=== PATIENT | female | born 1990 | race Caucasian/White ===

== ENCOUNTER 2018-03-28 06:56 | Emergency (ER) | payer OTHER ==
[2018-03-28] MEDS ORDERED: Ondansetron HCl/PF 4 MG/2 ML Vial ONE (07:17)
[2018-03-28 07:59] LABS: ALT (SGPT) 23 U/L (8-55); AST (SGOT) 19 U/L (5-34); Albumin 4.5 g/dL (3.5-5.0); Alkaline Phosphatase 108 U/L (40-150); Anion Gap 13 mmol/L (10-20); BUN (Urea Nitrogen) 11 mg/dL (7.0-18.7); Bilirubin, Total 0.3 mg/dL (0.2-1.2); Calc. Creatinine Clearance 0 mL/min (70-130); Calcium 9.4 mg/dL (7.8-10.44); Carbon Dioxide 23 mmol/L (22-29); Chloride 104 mmol/L (98-107); Estimated GFR-MDRD 77; Globulin 3.2 g/dL (2.4-3.5); Glucose 100 mg/dL (70-105); Lipase 20 U/L (8-78); Potassium 3.8 mmol/L (3.5-5.1); Protein, Total 7.7 g/dL (6.0-8.3); Sodium 136 mmol/L (136-145)
[2018-03-28 08:03] LABS: Hemoglobin 13.3 g/dL (12.0-16.0); Mean Corpuscular HGB CONC 35.9 g/dL (32.0-36.0); Mean Corpuscular Hemoglobin 32.2 pg (27.0-31.0); Mean Corpuscular Volume 89.6 fL (78.0-98.0); Mean Platelet Volume 7.6 fL (7.4-10.4); Platelet Count 247 thou/uL (130-400); RBC Distribution Width 11.3 % (11.5-14.5); Red Blood Cell (RBC) Count 4.13 mill/uL (4.20-5.40); White Blood Cell (WBC) Count 5.7 thou/uL (4.8-10.8)
[2018-03-28 08:04] LABS: Bilirubin Negative (Negative); Blood, Urine Negative (Negative); Clarity CLEAR (Clear); Glucose, Urine (Dipstick) Negative (Negative); Leukocyte Moderate (Negative); Nitrite Negative (Negative); Protein, Urine (Dipstick) Negative (Neg-Trace); Specific Gravity, Urine 1.017 (1.002-1.036); Urobilinogen 0.2 mg/dL (0.2-1.0)
[2018-03-28 08:05] LABS: Band 4 % (5-11); Eosinophils 1 % (0-10); Lymphocytes 33 % (21-51); MDiff Complete? YES; Monocytes 2 % (0-10); Neutrophil 60 % (42-75); RBC Morphology Normal
[2018-03-28 08:06] LABS: Bacteria/HPF None Seen HPF (None Seen); Hyaline Casts/LPF 0-3 HYALINE CAST LPF (0-3 Hyaline); Pathc Cast-AUWi Flag 0.29 (0-2.49); WBC/HPF 0-3 HPF (0-3)
[2018-03-28 08:15] LABS: Pregnancy Test - Urine (BHCG) Negative (Negative); Pregu Control Background? CLEAR/WHITE (CLR/WHITE); Pregu Control Bar Appear? YES (CONTROL BAR); Specific Gravity 1.017 (1.002-1.036)
[2018-03-28] MEDS ORDERED: ISOVUE-370 76%-LOCM 1 ML ONE (08:16)
[2018-03-28 08:23] LABS: RBC/HPF 0-3 HPF (0-3)
--- NOTE | 2018-03-28 08:57 | CT ---
CT ABDOMEN AND PELVIS WITH CONTRAST: HISTORY: Abdominal pain. COMPARISON: None. FINDINGS: The lung bases are clear. No pericardial effusion. No dilated loops of large or small bowel. The ap pendix is visualized and is normal. There is no free intraperitoneal gas or fluid. The liver and gallbladder are unremarkable. The pancreas is unremarkable. Hypodensity is present in the posterior cortex interpolar right kidney measuring fluid attenuation. No retroperitoneal adenopathy. IMPRESSION: No acute inflammatory process in the abdomen or pelvis. POS: [facility]
== END 2018-03-28 09:24 | disposition home or self-care (01) ==
LOC: ERS 06:56
DX: R10.9 Unspecified abdominal pain (principal); F41.9 Anxiety disorder, unspecified; F32.9 Major depressive disorder, single episode, unspecified; Z79.899 Other long term (current) drug therapy
CPT/HCPCS: 74177; 80053; 81003; 81015; 81025; 83690; 85025; 96361; 96374; 96375; J2270; J2405

== ENCOUNTER 2018-06-24 12:27 | Emergency (ER) | payer OTHER ==
[2018-06-24 12:59] LABS: #Eosinphils 0.1 thou/uL (0.0-0.7); #Lymphocytes 2.6 thou/uL (1.20-3.40); #Monocytes 0.5 thou/uL (0.11-0.59); #Neutrophils 3.7 thou/uL (1.40-6.50); %Basophils 0.6 % (0.0-1.0); %Eosinophils 1.1 % (0.0-10.0); %Monocytes 6.5 % (0.0-10.0); %Neutrophils 53.8 % (42.0-75.0); Hemoglobin 12.9 g/dL (12.0-16.0); Mean Corpuscular HGB CONC 33.7 g/dL (32.0-36.0); Mean Corpuscular Volume 88.8 fL (78.0-98.0); Mean Platelet Volume 7.7 fL (7.4-10.4); Platelet Count 259 thou/uL (130-400); RBC Distribution Width 11.3 % (11.5-14.5); Red Blood Cell (RBC) Count 4.31 mill/uL (4.20-5.40); White Blood Cell (WBC) Count 6.9 thou/uL (4.8-10.8)
[2018-06-24 13:20] LABS: ALT (SGPT) 21 U/L (8-55); AST (SGOT) 18 U/L (5-34); Albumin 4.6 g/dL (3.5-5.0); Alkaline Phosphatase 110 U/L (40-150); Anion Gap 12 mmol/L (10-20); BUN (Urea Nitrogen) 12 mg/dL (7.0-18.7); Bilirubin, Total 0.5 mg/dL (0.2-1.2); CK (CPK) 124 U/L (29-168); Calc. Creatinine Clearance 0 mL/min (70-130); Calcium 9.7 mg/dL (7.8-10.44); Carbon Dioxide 22 mmol/L (22-29); Chloride 105 mmol/L (98-107); Estimated GFR-MDRD 89; Globulin 3.2 g/dL (2.4-3.5); Glucose 81 mg/dL (70-105); Potassium 3.7 mmol/L (3.5-5.1); Protein, Total 7.8 g/dL (6.0-8.3); Sodium 135 mmol/L (136-145)
--- NOTE | 2018-06-24 14:07 | RAD ---
PORTABLE AP CHEST XRAY: DATE: 06/24/2018. HISTORY: Left-sided chest pain with radiation to left arm. COMPARISON: None available. FINDINGS: Heart and mediastinal structures are within normal limits. Lungs are clear. Osseous structures are intact. IMPRESSION: No acute process is identified. POS: [facility]
[2018-06-24 14:29] LABS: BHCG - Serum Negative (NEGATIVE); Pregs Control Background? CLEAR/WHITE (CLR/WHITE); Pregs Control Bar Appear? YES (CONTROL BAR)
[2018-06-24] MEDS ORDERED: Ketorolac Tromethamine 60 MG/2 ML VIAL ONE (14:36)
--- NOTE | 2018-06-26 15:29 | EKG ---
Test Reason : CP Blood Pressure : / mmHG Vent. Rate : 096 BPM Atrial Rate : 096 BPM P-R Int : 134 ms QRS Dur : 074 ms QT Int : 360 ms P-R-T Axes : 044 002 045 degrees QTc Int : 454 ms Normal sinus rhythm Minimal voltage criteria for LVH, may be normal variant No STEMI Borderline ECG Confirmed by ANNA VELASQUEZ, ALFRED ([id number]), sports editor KRYSTIAN BATES ([id number] on 06/26/2018 3:29:18 PM Referred By: Confirmed By:ALFRED CASTILLO MD
== END 2018-06-24 15:09 | disposition home or self-care (01) ==
LOC: ERS 12:27
DX: R07.9 Chest pain, unspecified (principal); F41.9 Anxiety disorder, unspecified; F32.9 Major depressive disorder, single episode, unspecified
CPT/HCPCS: 36415; 71045; 80053; 82550; 84484; 84703; 85025; 85379; 93005; 96372; J1885

== ENCOUNTER 2019-08-07 13:16 | Outpatient (CLI) | payer OTHER | END 2019-08-07 13:17 | disposition home or self-care (01) | LOC: ULT 13:16 | PROVIDERS: ATTEND Family Medicine | DX: R01.1 Cardiac murmur, unspecified (principal); I08.8 Other rheumatic multiple valve diseases | CPT/HCPCS: 93306 ==

== ENCOUNTER 2020-04-22 07:38 | Outpatient (CLI) | payer OTHER ==
--- NOTE | 2020-04-22 12:54 | HP ---
She is scheduled for surgery on 04/27/2020. HISTORY OF PRESENT ILLNESS: Ms. Soni is 29-year-old white female, G2, P2, who has been having extremely heavy menstrual bleeding over the past 2 years. She describes passing very large clots with heavy flow for 7 days and has progressively worsened. She is not desiring any further children and has tried oral contraceptives which have not improved her symptoms. She also uses ibuprofen 800 mg every 8 hours with minimal improvement in her cramping pain and flow. She is desiring definitive surgical therapy. PAST MEDICAL HISTORY: Negative. PAST SURGICAL HISTORY: Negative. OB HISTORY: Two spontaneous vaginal deliveries. FAMILY HISTORY: Noncontributory. CURRENT MEDICATIONS: 1. Oral contraceptive agents. 2. Motrin p.r.n. ALLERGIES: SHE HAS NO KNOWN DRUG ALLERGIES. PHYSICAL EXAMINATION: VITAL SIGNS: Her height is 4 feet 11 inches, weight 178, with a BMI of 36. Blood pressure 136/80, pulse 94, respirations 18, and O2 saturation 99% on room air. HEENT: Within normal limits. CHEST: Clear to auscultation. HEART: Regular rate and rhythm. S1, S2 heart sounds. No murmurs, rubs, or gallops. ABDOMEN: Soft, nontender, nondistended, with no palpable masses. PELVIC: Vulva and vagina had no lesions. Cervix has no lesions. Uterus is small, but it was tender on exam. Adnexa were nontender, with no masses. LABORATORY DATA: Transvaginal ultrasound was obtained showing the uterus measuring 9.21 x 6.31 x 5.56 cm with a thickened endometrial lining of 15 mm. Normal bilateral ovaries and tubes were noted. There was a presumed uterine polyp seen 2.95 x 0.92 cm on the uterine cavity. Pap smear and HPV testing were negative. ASSESSMENT: This is a 29-year-old white female, G2, P2, with menorrhagia and pelvic pain with probable endometrial polyp, desiring definitive surgical therapy. PLAN: Plan is to proceed with robotic total laparoscopic hysterectomy with bilateral salpingectomy. Risks and benefits of the procedure have been discussed in detail. She is set for surgery on 04/27. Job ID: [id number]
[2020-04-22 15:01] LABS: BHCG - Serum Negative (NEGATIVE); Pregs Control Background? CLEAR/WHITE (CLR/WHITE); Pregs Control Bar Appear? YES (CONTROL BAR)
[2020-04-22 15:05] LABS: Hemoglobin 12.6 g/dL (12.0-16.0); Mean Corpuscular Hemoglobin 31.7 pg (27.0-31.0); Mean Corpuscular Volume 90.4 fL (78.0-98.0); Mean Platelet Volume 8.9 fL (7.4-10.4); Platelet Count 238 thou/uL (130-400); RBC Distribution Width 11.3 % (11.5-14.5); Red Blood Cell (RBC) Count 3.99 mill/uL (4.20-5.40); White Blood Cell (WBC) Count 6.9 thou/uL (4.8-10.8)
[2020-04-23 12:26] LABS: SARS-CoV-2 MS2 Positive; SARS-CoV-2 N Gene Negative; SARS-CoV-2 S Gene Negative; SARS-CoV-2 by NAA Not Detected (NotDetected); SARS-CoV-2 orf1ab Negative
== END 2020-04-22 07:39 | disposition home or self-care (01) ==
LOC: LABBT 07:38
PROVIDERS: ATTEND Obstetrics & Gynecology
DX: Z01.812 Encounter for preprocedural laboratory examination (principal); N80.0 Endometriosis of uterus; N92.0 Excessive and frequent menstruation with regular cycle; N94.6 Dysmenorrhea, unspecified; Z20.828 Contact with and (suspected) exposure to other viral communicable diseases
CPT/HCPCS: 84703; 85027; 86850; 86900; 86901; 87635; U0003

== ENCOUNTER 2020-04-27 05:40 | Day surgery (SDC) | payer OTHER ==
[2020-04-22 15:08] VITALS: BMI 35.1
[2020-04-27] MEDS ORDERED: Gabapentin 300 MG CAP ONE (06:03)
[2020-04-27] MEDS ORDERED: Famotidine/PF 20 mg/2ml Vial ONE (06:03)
[2020-04-27] MEDS ORDERED: CeleCOXIB 100 MG CAP ONE (06:03)
[2020-04-27] MEDS ORDERED: Bupivacaine HCl 0.5%/Epinephrine 1:200,000/PF 30 ml Vial ONE (06:59)
[2020-04-27] MEDS ORDERED: Midazolam HCl 2 mg/2 ml Vial ONE (07:04)
[2020-04-27] MEDS ORDERED: Fentanyl 250 MCG/5 ML VIAL ONE (07:11)
[2020-04-27] MEDS ORDERED: Simethicone Chewable 80 MG TAB PO PRN (09:13)
[2020-04-27] MEDS ORDERED: Bisacodyl 10 MG SUPP PR PRN (09:13)
[2020-04-27] MEDS ORDERED: Morphine 4 MG/ML VIAL SLOW IVP PRN (09:13)
[2020-04-27] MEDS ORDERED: HYDROcodone/Acetaminophen 5/325 mg Tablet PO PRN ×2 (09:13)
[2020-04-27] MEDS ORDERED: Zolpidem Tartrate 5 MG TAB PO PRN (09:13)
[2020-04-27] MEDS ORDERED: diphenhydrAMINE 25 MG CAP PO PRN (09:13)
[2020-04-27] MEDS ORDERED: traMADol HCl 50 MG TAB PO PRN (09:13)
[2020-04-27] MEDS ORDERED: Promethazine HCl 25 MG/ML VIAL IM PRN ×2 (09:13→09:47)
[2020-04-27] MEDS ORDERED: Ondansetron PF 4 MG/2 ML Vial IVP PRN (09:13)
[2020-04-27] MEDS ORDERED: Fentanyl 100 MCG/2 ML VIAL ONE ×2 (09:36→10:00)
[2020-04-27] MEDS ORDERED: PROPOFOL 200 MG/20 ML VIAL ONE (09:45)
[2020-04-27] MEDS ORDERED: Glycopyrrolate 0.2 MG/ML 5 ML SYRINGE ONE (09:45)
[2020-04-27] MEDS ORDERED: Ondansetron PF 4 MG/2 ML Vial ONE (09:45)
[2020-04-27] MEDS ORDERED: Promethazine HCl 25 MG/ML VIAL SLOW IVP PRN (09:47)
[2020-04-27] MEDS ORDERED: Ondansetron HCl/PF 4 MG/2 ML Vial IVP PRN (09:47)
--- NOTE | 2020-04-27 10:46 | OP ---
DATE OF PROCEDURE: 04/27/2020 PREOPERATIVE DIAGNOSES: 1. A 29-year-old white female, G2, P2, with menometrorrhagia. 2. Failed medical management. 3. Probable endometrial polyp. 4. Desires definitive surgical therapy. POSTOPERATIVE DIAGNOSES: 1. A 29-year-old white female, G2, P2, with menometrorrhagia. 2. Failed medical management. 3. Probable endometrial polyp. 4. Desires definitive surgical therapy. PROCEDURES PERFORMED: Robotic total abdominal hysterectomy with bilateral salpingectomy. [employer] MANU[employer]CTURING TECHNICIAN SURGEON: Melissa Hayes PA-C ANESTHESIA: General endotracheal. ESTIMATED BLOOD LOSS: 25 mL. COMPLICATIONS: None. COUNTS: Correct x2. ANTIBIOTICS: 2 g Ancef on-call to OR. FINDINGS: 1. Mildly enlarged uterus, boggy in appearance, consistent with adenomyosis. 2. Normal bilateral tubes and ovaries. 3. Clear urine present in Alexis catheter postprocedure with bilateral ureteral peristalsis visualized postprocedure. DISPOSITION: Recovery room, stable. DESCRIPTION OF PROCEDURE: The patient previously received informed consent in regard to surgery. She was taken back to the operating room, where she received a general endotracheal anesthetic agent without complications. She was then placed in the dorsal lithotomy position with the use of Wan stirrups and prepped and draped in usual sterile fashion. Alexis catheter was placed at this time along with a side-arm speculum. The anterior lip of the cervix was grasped with a single-tooth tenaculum. The uterus sounded to 9 cm. A size 9 cm WILD uterine manipulator with a 4.0 cm cervical cup was then placed in usual fashion. Tenaculum and speculum removed. Attention was then turned to the abdomen, where perspective trocar sites were infiltrated with 0.5% Marcaine with epinephrine. A 12-mm umbilical incision was made and Veress needle entered into the peritoneal cavity. The patient's pressure was noted to be less than 5 mm. Abdomen was insufflated to the patient's pressure of 15, approximately 5 L of carbon dioxide gas. Veress needle was then removed. Attention was then turned 12-mm trocar was placed in the umbilical incision and laparoscope was introduced through the trocar sleeve confirming proper entry. Additional bilateral 8-mm trocars were placed under laparoscopic guidance along with the right upper quadrant 11-mm metal forger's assistant port. The patient was placed in Trendelenburg position and robot was docked. I then broke scrub and proceeded to carry out the procedure from the operative console while my assistants remained at the bedside. The uterus was elevated from the pelvis with the previously mentioned findings. The left fallopian tube was grasped by my metal forger's assistant and then I bipolar fenestrated, cauterized the mesosalpinx of the left fallopian tube and this was incised with monopolar scissors removing the left fallopian tube. This was brought out through the right upper quadrant metal forger's assistant port. Then, I coagulated the left uterine ovarian ligament, transected with monopolar scissors and then serial coagulation of the left side of the broad ligament down to the left round ligament was carried out with bipolar fenestrated cautery and monopolar scissors. I then incised the vesicouterine peritoneum fold and entered this and dissected the bladder both sharply and bluntly in an atraumatic fashion to the bladder. The left uterine vessels were skeletonized and they were coagulated in the internal cervical os region. I carried out this on the right side with the right fallopian tube being removed in similar fashion. The right utero ovarian ligament was coagulated and transected and serial coagulation of broad ligament again was coagulated and transected until the right round ligament was reached. It was coagulated and transected. The anterior leaf of the broad ligament was entered, dissecting the vesicouterine peritoneum in a layering technique dropping the bladder safely past the cervical vaginal margin. The uterine vessels on the right side were skeletonized and coagulated the internal cervical os. Once felt adequately that we had good control of the uterine vessels, blood supply in this region and that the bladder had been safely dissected past the cervical vaginal margin, the anterior colpotomy was made from 12 o'clock to 3 o'clock and 12 o'clock to 9 o'clock position. It was completed from 6 o'clock to 9 o'clock and 6 o'clock to 3 o'clock. The specimen was removed and delivered in the vaginal vault. The monopolar scissor was switched out of the Terry needle airport driver. Around the vaginal cuff with intermittent bipolar cautery, coagulating any areas of ongoing bleeding. Once the hemostasis was confirmed, a Stratafix suture was then brought into the field by my metal forger's assistant. I then closed the vaginal cuff in full-thickness closure starting the right angle to the left angle back towards the right angle, closing the vaginal cuff and we confirmed hemostasis. The pelvis was then irrigated and all pedicle sites were confirmed to be hemostatic. Clear urine was draining from the Alexis catheter. Bilateral ureteral peristalsis was visualized on each pelvic sidewall. The robot was then undocked. The trocars were removed. I then closed umbilical fascial defect. The remainder of the trocar sites were closed with 4-0 Monocryl and Dermabond. Vaginal vault was checked with a sponge stick and hemostasis vaginally was confirmed. The patient was awakened from anesthesia and transferred to recovery room in stable condition. Job ID: [id number]
[2020-04-27] MEDS: Ketorolac Tromethamine 30 MG/ML VIAL IVP SCH ×2 (11:45→18:22)
[2020-04-27] MEDS: Sodium Chloride 0.9% 1,000 ML IV SCH (18:22)
[2020-04-28] MEDS: Ketorolac Tromethamine 30 MG/ML VIAL IVP SCH (00:08)
[2020-04-28] MEDS: Sodium Chloride 0.9% 1,000 ML IV SCH ×2 (04:00→04:01)
[2020-04-28 05:58] LABS: Hemoglobin 10.5 g/dL (12.0-16.0); Mean Corpuscular HGB CONC 34.1 g/dL (32.0-36.0); Mean Corpuscular Hemoglobin 30.7 pg (27.0-31.0); Mean Corpuscular Volume 90.1 fL (78.0-98.0); Mean Platelet Volume 8.4 fL (7.4-10.4); Platelet Count 190 thou/uL (130-400); RBC Distribution Width 11.2 % (11.5-14.5); Red Blood Cell (RBC) Count 3.42 mill/uL (4.20-5.40); White Blood Cell (WBC) Count 6.9 thou/uL (4.8-10.8)
[2020-04-28] MEDS ORDERED: Ibuprofen 800 MG TAB PO SCH (06:00)
--- NOTE | 2020-04-28 08:04 | PDOC.EVN ---
Event Note - Event Note Event Note: Tolerating diet....Good pain control... O:AFVSS...HCT 30.8%. ABD: soft/non distended. active BS...Trochar sites clean dry/intact. A/P: post op day 1 from robotic tlh...doing well. d/c home. F/u 2 and 6 weeks.
[2020-04-28 08:08] VITALS: BP 111/57; TEMP 98.5
--- NOTE | 2020-04-29 00:07 | DIS ---
DATE OF ADMISSION: 04/27/2020 DATE OF DISCHARGE: 04/28/2020 DIAGNOSES: 1. Menorrhagia. 2. Endometrial polyp. 3. Clinical adenomyosis. PROCEDURES PERFORMED: Robotic total abdominal hysterectomy with bilateral salpingectomy. SUMMARY OF HOSPITAL COURSE: Ms. Soni is 29-year-old white female, G2, P2, who had continued menorrhagia despite medical management trials. She had probable endometrial polyp on ultrasound evaluation. She was offered conservative surgery with ablation and D and C, but she preferred definitive surgical therapy. She underwent a robotic MADELAINE and bilateral salpingectomy on 04/27. Postoperatively, the patient has done well. Vital signs remained stable. She is ambulating and voiding without difficulty on the afternoon of postop day zero. She had a hematocrit of 30.8 on postop day #1 and is having adequate pain control on oral medication. She will be discharged home with tramadol 50 mg q.6 hours p.r.n. pain and [id number] ibuprofen and has followup in 2 and 6 weeks. Pathology is pending. Job ID: [id number]
== END 2020-04-28 10:00 | disposition home or self-care (01) ==
LOC: SDC 05:40 → 3SE 09:13 → SDC 04-28 10:00
PROVIDERS: ATTEND Obstetrics & Gynecology
PROC: 0UT74ZZ Resection of Bilateral Fallopian Tubes, Percutaneous Endoscopic Approach (ICD-10-PCS; principal; 2020-04-27)
PROC: 0UT94ZZ Resection of Uterus, Percutaneous Endoscopic Approach (ICD-10-PCS; principal; 2020-04-27)
DX: N80.0 Endometriosis of uterus (principal); N72 Inflammatory disease of cervix uteri; N73.6 Female pelvic peritoneal adhesions (postinfective); N84.0 Polyp of corpus uteri
CPT/HCPCS: 36415; 85027; 88307; J0690; J1885; J2250; J2405; J2704; J3010; S0028

== ENCOUNTER 2020-05-02 20:50 | Emergency (ER) | payer OTHER ==
[~2020-05-02 20:50] MED LIST: Iopamidol 370 76% 100 ML VIAL ONE
[2020-05-02 21:34] LABS: #Eosinphils 0.1 thou/uL (0.0-0.7); #Lymphocytes 1.7 thou/uL (1.20-3.40); #Monocytes 0.6 thou/uL (0.11-0.59); #Neutrophils 7.6 thou/uL (1.40-6.50); %Basophils 0.3 % (0.0-1.0); %Eosinophils 0.7 % (0.0-10.0); %Lymphocytes 16.7 % (21.0-51.0); %Monocytes 6.2 % (0.0-10.0); %Neutrophils 76.1 % (42.0-75.0); Hemoglobin 12.1 g/dL (12.0-16.0); Mean Corpuscular HGB CONC 34.5 g/dL (32.0-36.0); Mean Corpuscular Hemoglobin 30.7 pg (27.0-31.0); Mean Platelet Volume 8.1 fL (7.4-10.4); Platelet Count 264 thou/uL (130-400); RBC Distribution Width 10.9 % (11.5-14.5); Red Blood Cell (RBC) Count 3.95 mill/uL (4.20-5.40)
--- NOTE | 2020-05-02 21:51 | CT ---
CT of theabdomen and pelvis: 05/02/2020 COMPARISON:03/28/2018 HISTORY:Fever and pain, recent hysterectomy TECHNIQUE: Serial axial CT imaging at5 mm intervals from thelung bases through pubic symphysis with I V contrast. Coronal and sagittal reformatted imaging obtained Findings:Imaged lung bases are unremarkable. No free intraperitoneal air. Lack of oral contrast limit s assessment of the bowel. The liver, gallbladder, spleen, pancreas, adrenal glands, and left kidney appear unremarkable. There is a stable posterior mid pole right renal low-density lesion measu ring 1.3 cm, likely representing a small cyst. There is no evidence for large or small bowel obstruction appreciated. A partially imaged appendix best seen on coronal image 82 appears grossly unremarkable. There are a few mildly thick-walled small bowel loops within the lower pelvis which may signify a deg ree of lower pelvis into right is. There is mild stranding of the fat within the pelvis which may signify inflammatory change or postoperative change. There is a small amount of free fluid within the pelvis posterior to the urinary bladder and anterior to the rectum with slight peripheral enhancement. This small amount of fluid measures in the 1.7 x 1.3 x 1.6 cm range. The vascular structures of the abdomen/pelvis appear patent. No abdominal or pelvic lymphadenopathy i s seen. Review of the osseous structures demonstrates no worrisome lytic or blastic bone lesions. Impression:There is small volume free fluid in the pelvic cul-de-sac, nonspecific mild diffuse pelvic fat stranding, and a few mildly thick walled small bowel loops within the pelvis. The small volume free fluid within the pelvis may be physiologic in nature. Inflammatory/infectious change with a smal l developing abscess cannot be fully excluded. Small bowel wall prominence suggesting mild degree of enteritis. No drainable abscess is seen. If symptoms persist, a follow-up CT examination is advise d with oral contrast media.
[2020-05-02 21:59] LABS: ALT (SGPT) 12 U/L (8-55); AST (SGOT) 11 U/L (5-34); Albumin 3.9 g/dL (3.5-5.0); Alkaline Phosphatase 102 U/L (40-110); Anion Gap 13 mmol/L (10-20); BUN (Urea Nitrogen) 16 mg/dL (7.0-18.7); Bilirubin, Total 0.4 mg/dL (0.2-1.2); Calc. Creatinine Clearance 0 mL/min (70-130); Calcium 9.5 mg/dL (7.8-10.44); Carbon Dioxide 25 mmol/L (22-29); Chloride 102 mmol/L (98-107); Estimated GFR-MDRD 83; Globulin 3.5 g/dL (2.4-3.5); Glucose 100 mg/dL (70-105); Potassium 4.6 mmol/L (3.5-5.1); Protein, Total 7.4 g/dL (6.0-8.3); Sodium 135 mmol/L (136-145)
[2020-05-02 22:03] LABS: Bilirubin Negative (Negative); Blood, Urine Trace (Negative); Clarity Turbid (Clear); Glucose, Urine (Dipstick) Normal (Negative); Ketone, Urine Negative (Negative); Leukocyte 75 Leu/uL (Negative); Mucous/LPF 2+ LPF (<2+); Nitrite Negative (Negative); Protein, Urine (Dipstick) 50 mg/dL (Neg-Trace); RBC/HPF 0-3 HPF (0-3); Specific Gravity, Urine 1.039 (1.002-1.036); Squamous Epithelial 21-50 HPF (0-3)
[2020-05-02 22:09] LABS: Bacteria/HPF 2+ HPF (None Seen)
[2020-05-02] MEDS ORDERED: metroNIDAZOLE 250 MG TAB ONE (23:17)
[2020-05-02] MEDS ORDERED: Ciprofloxacin 500 MG TAB ONE (23:17)
== END 2020-05-02 23:25 | disposition home or self-care (01) ==
LOC: ERS 20:50
DX: R50.82 Postprocedural fever (principal); F32.9 Major depressive disorder, single episode, unspecified
CPT/HCPCS: 36415; 74177; 80053; 81003; 81015; 83605; 85025; Q9967

== ENCOUNTER 2021-06-27 13:52 | Outpatient (CLI) | payer OTHER | END 2021-06-27 13:53 | disposition home or self-care (01) | LOC: BICULT 13:52 | PROVIDERS: ATTEND Nurse Practitioner Family | DX: R94.6 Abnormal results of thyroid function studies (principal) | CPT/HCPCS: 76536 ==

== ENCOUNTER 2022-06-08 23:27 | Emergency (ER) | payer BC, SELFPAY ==
[2022-06-09] MEDS ORDERED: Orphenadrine Citrate 60 MG/2 ML VIAL ONE (00:34)
[2022-06-09] MEDS ORDERED: Ketorolac Tromethamine 30 MG/ML VIAL ONE (00:34)
[2022-06-09] MEDS ORDERED: Diazepam 5 MG TAB ONE (01:27)
== END 2022-06-09 02:09 | disposition home or self-care (01) ==
LOC: ERS 23:27
DX: M54.50 Low back pain, unspecified (principal); M62.830 Muscle spasm of back
CPT/HCPCS: 71046; 72070; 72100; 96372; J1885; J2360

== ENCOUNTER 2024-04-09 11:05 | Emergency (ER) | payer BC ==
[2024-04-09] MEDS ORDERED: Metoclopramide HCl 10 MG (2 mL) VIAL ONE (11:40)
[2024-04-09] MEDS ORDERED: diphenhydrAMINE 50 MG/ML VIAL ONE (11:40)
[2024-04-09] MEDS ORDERED: Ketorolac Tromethamine 30 MG (1 mL) VIAL ONE (11:45)
== END 2024-04-09 13:29 | disposition home or self-care (01) ==
LOC: ERS 11:05
DX: G44.209 Tension-type headache, unspecified, not intractable (principal); H81.399 Other peripheral vertigo, unspecified ear; R29.700 NIHSS score 0
CPT/HCPCS: 96365; 96375; J1200; J1885; J2765